=== PATIENT | female | born 1960 | race Caucasian/White ===

== ENCOUNTER → 2024-09-30 11:00 | Outpatient (BNVA) | payer MEDICARE, SELFPAY | PROVIDERS: Referring Provider Nurse Practitioner Family; Visit Provider Specialist | DX: M34.9 Systemic sclerosis, unspecified (principal); M33.13 Other dermatomyositis without myopathy; G44.309 Post-traumatic headache, unspecified, not intractable; R42 Dizziness and giddiness; H53.9 Unspecified visual disturbance | CPT/HCPCS: 99205 ==

== ENCOUNTER → 2025-01-06 13:34 | Outpatient (BNVA) | payer MEDICARE, SELFPAY | PROVIDERS: Visit Provider Specialist | DX: G44.309 Post-traumatic headache, unspecified, not intractable (principal); M33.13 Other dermatomyositis without myopathy; M34.9 Systemic sclerosis, unspecified | CPT/HCPCS: 99214 ==

== ENCOUNTER 2025-01-12 09:13 | Outpatient (CLI) | payer MEDICARE, SELFPAY ==
--- NOTE | 2025-01-12 10:15 | MR_ITS ---
WS: [id number] MRI HEAD WITHOUT CONTRAST TECHNIQUE: Sagittal T1, T2 axial, T2 axial FLAIR, axial and coronal T1 images, axial susceptibility weighted imaging, axial diffusion weighted images, and coronal T2 images were obtained. CLINICAL INFORMATION: G44.309 - Post-traumatic headache, unspecified, not intra... COMPARISON: None. FINDINGS: No evidence of restricted diffusion to suggest acute ischemia. Ventricular system and basal cisterns are patent. Mild small vessel changes. Mild parenchymal volume loss. Normal posterior fossa. Normal vascular flow voids at the skull base. No extra-axial fluid collections. No evidence of mass or mass e ffect. Paranasal sinuses and mastoid air cells are well aerated. Normal optic chiasm and pituitary infundibulum. No other acute findings. MR/MR head wo con* [id number] IMPRESSION: 1. No evidence of restricted diffusion to suggest acute ischemia. 2. Mild small vessel changes. Mild parenchymal volume loss. 3. No hemosiderin on the susceptibility weighted images. 4. No other acute intracranial findings.
--- NOTE | 2025-01-12 11:00 | MR_ITS ---
WS: [id number] MRA HEAD TECHNIQUE: Axial 3-D TOF images obtained with axial images and axial, sagittal, and coronal 2-D reformatted images. CLINICAL INFORMATION: R51.9 - Headache, unspecified COMPARISON: None. FINDINGS: Distal vertebral arteries are patent. Basilar artery is patent. Persistent LEFT COMPOUNDING SCALER. Normal vascularity to the COMPOUNDING SCALER territory bilaterally. Both ICAs are patent at the skull base. Normal vascularity to the TRISTAN and MCA territories bilaterally. No evidence of proximal flow-limiting stenosis or aneurysm. MR/MR angio head wo con [id number] IMPRESSION: 1. No evidence of proximal flow-limiting stenosis or aneurysm. 2. Anterior dominant circulation with small but patent basilar artery. 3. Persistent LEFT COMPOUNDING SCALER.
== END 2025-01-12 09:14 | disposition home or self-care (01) ==
PROVIDERS: Visit Provider Specialist
DX: G44.309 Post-traumatic headache, unspecified, not intractable (principal); R93.0 Abnormal findings on diagnostic imaging of skull and head, not elsewhere classified
CPT/HCPCS: 70544; 70551

== ENCOUNTER 2025-04-07 12:33 | Outpatient (CLI) | payer MEDICARE, SELFPAY | END 2025-04-07 12:34 | disposition home or self-care (01) | PROVIDERS: Visit Provider Specialist | DX: M33.13 Other dermatomyositis without myopathy (principal); M34.9 Systemic sclerosis, unspecified; G44.309 Post-traumatic headache, unspecified, not intractable | CPT/HCPCS: 99213 ==